=== PATIENT | female | born 1945 | race Caucasian/White ===

== ENCOUNTER 2019-03-05 11:54 | Emergency (ER) | payer OTHER, SELFPAY ==
[2019-03-05 12:00] VITALS: BP 151/80; PULSE 55; RESP 16; TEMP 36.3; O2SAT 98
[2019-03-05 12:25] LABS: Add Manual Diff / Slide Review NO; Basophils Absolute Auto 0 /uL (0-100); Basophils Percent Auto 0.3 % (0-2); Eosinophils Absolute Auto 0 /uL (0-450); Eosinophils Percent Auto 0.1 % (2-4); Hemoglobin 14.9 g/dL (12.0-16.0); Lymphocytes Absolute Auto 1400 /uL (1100-4500); Mean Corpuscular HGB Conc 33.9 % (30-36); Mean Corpuscular Hemoglobin 33.8 PG (26-34); Mean Corpuscular Volume 99.8 fL (80-100); Monocytes Absolute Auto 1400 /uL (0-900); Monocytes Percent Auto 9.3 % (3-14); Neutrophils Absolute Auto 12500 /uL (1500-7000); Neutrophils Percent Auto 81.3 % (50-75); Platelet Count 376 X10^3/uL (150-400); Red Blood Cell Count 4.41 X10^6/uL (4.0-5.2); Red Cell Distribution Width 12.7 % (11.6-14.8); White Blood Cell Count 15.4 X10^3/uL (4.5-11.0)
[2019-03-05 12:30] VITALS: BP 169/71; PULSE 50; RESP 16; O2SAT 95
[2019-03-05 12:30] LABS: INR 1.1 (0.9-1.3); Prothrombin Time 12.2 SECONDS (10.1-12.7)
[2019-03-05 12:33] LABS: PTT Partial Thromboplastin Tim 37 SECONDS (26.4-36.2)
[2019-03-05 12:37] LABS: Alanine Aminotransferase 11 IU/L (9-52); Albumin 4.4 g/dL (3.5-5.0); Albumin Globulin Ratio 1.2 (1.0-2.8); Alkaline Phosphatase 90 U/L (38-126); Aspartate Aminotransferase 31 IU/L (14-36); BUN Creatinine Ratio 23.3 (6-22); Bilirubin Total 0.6 mg/dL (0.2-1.3); Blood Urea Nitrogen 14 mg/dL (7-17); Calcium 9.5 mg/dL (8.4-10.2); Carbon Dioxide 24 mmol/L (22-32); Chloride 101 mmol/L (98-107); Estimated Glomerular Filt Rate > 60.0 mL/min (>60); Globulin 3.8 g/dL (1.7-4.1); Glucose 119 mg/dL (80-110); HEMOLYSIS 20 (0-50); Lipase 31 U/L (23-300); Potassium 4.1 mmol/L (3.4-5.1); Sodium 140 mmol/L (137-145); Total Protein 8.2 g/dL (6.3-8.2)
--- NOTE | 2019-03-05 12:42 | ED.ABDPAIN ---
HPI - Abdominal Pain <MARIMAR MooreP - Last Filed: 03/05/19 22:29> General Chief Complaint: Abdominal Pain Stated Complaint: vomiting/right side pain/chills x1 day Time Seen by Provider: 03/05/19 12:09 Source: patient Mode of arrival: Ambulatory Limitations: no limitations History of Present Illness HPI narrative: This is a 73-year-old female, smoker, who presents to ED after referred to from her PCP Christine Horton, with right upper quadrant and right upper flank pain that started yesterday evening at 5:30 a.m.. She reports she was so uncomfortable and was unable to sleep and rolled around in bed all night. She states she was nauseated and had vomited so far about 4 times. She states at one point her pain was radiating to shoulder blades. She also had chills and feeling hot overnight. She has no appetite at this time. She reports urinary frequency but denies dysuria or hematuria. The pain has subsided a bit this morning after she had taken ibuprofen 2 pills at home and describes as 4/10 and still has mild nausea. Patient denies history of abdominal surgery. Related Data Home Medications Medication Instructions Recorded Confirmed levothyroxine 100 mcg PO DAILY 03/05/19 03/05/19 metoprolol tartrate 25 mg PO DAILY 03/05/19 03/05/19 Allergies Allergy/AdvReac Type Severity Reaction Status Date / Time No Known Drug Allergies Allergy Verified 03/05/19 13:57 Review of Systems <MARIMAR MooreP - Last Filed: 03/05/19 22:29> Review of Systems Narrative: General: See HPI HEENT: Denies sinus pain, ear pain, sore throat, difficulty swallowing, dizziness. Respiratory: Denies dyspnea, cough, wheezing, hemoptysis, sputum. Cardiovascular: Denies chest pain, palpitations, orthopnea, edema. Gastrointestinal: See HPI : See HPI Musculoskeletal: Denies weakness, joint pain or bony pain. Skin: Denies rash, skin lesions, or other. Neurologic: Denies weakness, headache, numbness, change in speech, confusion, seizures, incoordination. Psychiatric: No concerning psychosocial issues. 12-point review of systems is negative except for those stated above. PFSH <RAYMOND Moore - Last Filed: 03/05/19 22:29> Medical History Hypertension (Acute) Hypothyroidism (Acute) Surgical History No pertinent past surgical history (Acute) Social History Smoking Status: Current every day smoker Social History Smoking Status: Current every day smoker Exam <RAYMOND Moore - Last Filed: 03/05/19 22:29> Narrative Exam Narrative: GEN: Alert, oriented x 3, well appearing and nourished, and in no acute distress. Head: Normal cephalic, atraumatic. No scalp or temporal tenderness, palpable mass or rash. EYES: Pupils are equal, round, and reactive to light and accommodation. Extraocular muscles are intact bilaterally. There is no subconjunctival hemorrhage, exudate and sclera non-icteric. ENT: Bilateral auditory canals and tympanic membranes clear. Hearing grossly intact. Nose without bleeding, purulent discharge or deviation. Facial sinuses nontender to palpate. Mucous membrane moist, no mucosal lesion. Throat without erythema, tonsillar hypertrophy or exudate. Uvula in midline, airway patent. Neck: Trachea in midline. No JVD, non-tender without lymphadenopathy. No masses or thyroid megaly. Supple, non-tender and no meningeal signs. CARDIAC: Normal regular rate and rhythm without murmurs, gallops, or rubs. No chest wall tenderness. No peripheral edema, cyanosis or pallor. Capillary refill is less than 2 seconds. RESPIRATORY: Lungs are cleat to auscultate bilaterally. No cough, wheezes, rales, or rhonchi. No stridor, respiratory distress, increase work of breathing, or accessary muscle used. ABD: Right upper quadrant pain with palpation. Abdomen soft and non-distended. No guarding or rebound tenderness to palpate. Bowel sounds are normal in all 4 quadrants. There is no palpable masses or organomegaly. EXT: Full painless ROM of all extremities with no loss of sensation, strength, effusion or edema. SKIN: Warm, dry, normal color for patient. No erythema, lesions or rash over visible areas. BACK: Nontender without deformity or crepitance. No flank tenderness. NEUROLOGICAL: Alert and oriented to place, time and person. Sensation and motor function intact bilaterally. No facial droops, dysphasia. PSYCHIATRIC: Good judgement and reason, without hallucinations, abnormal affect or abnormal behaviors during the examination. Initial Vital Signs Initial Vital Signs: Vital Signs Temperature 97.4 F L 03/05/19 12:00 Pulse Rate 55 L 03/05/19 12:00 Respiratory Rate 16 03/05/19 12:00 Blood Pressure 151/80 H 03/05/19 12:00 Pulse Oximetry 98 03/05/19 12:00 <Janae Ibarra DO - Last Filed: 03/06/19 08:31> Initial Vital Signs Initial Vital Signs: Vital Signs Temperature 97.4 F L 03/05/19 12:00 Pulse Rate 55 L 03/05/19 12:00 Respiratory Rate 16 03/05/19 12:00 Blood Pressure 151/80 H 03/05/19 12:00 Pulse Oximetry 98 03/05/19 12:00 Course <RAYMOND Moore - Last Filed: 03/05/19 22:29> Orders Ordered: Discontinued Medications Bacitracin (Bacitracin) 1 applic TOP NOW ONE Stop: 03/05/19 18:42 Last Admin: 03/05/19 18:56 Dose: 1 applic Documented by: MYNORONEAlmaz Sodium Chloride (Normal Saline 0.9%) 500 mls @ 1,000 mls/hr IV BOLUS PRN PRN Reason: Fluid replacement Last Infusion: 03/05/19 15:47 Dose: 1,000 mls/hr Documented by: Admin: 03/05/19 14:48 Dose: 1,000 mls/hr Documented by: BTONER Piperacillin/Tazobactam/Dextrose (Zosyn) 3.375 gm in 50 mls @ 100 mls/hr IV NOW ONE Stop: 03/05/19 15:49 Last Infusion: 03/05/19 16:47 Dose: 0 mls/hr Documented by: Admin: 03/05/19 16:12 Dose: 100 mls/hr Documented by: CRUZITO Ketorolac Tromethamine (Toradol) 30 mg IV NOW ONE Stop: 03/05/19 13:56 Last Admin: 03/05/19 14:48 Dose: 30 mg Documented by: CARIN Ondansetron HCl (Zofran) 4 mg IV NOW ONE Stop: 03/05/19 13:56 Last Admin: 03/05/19 14:48 Dose: 4 mg Documented by: MYNORONEAlmaz Tetanus/Diphtheria Toxoids (Td) 0.5 ml IM .ONCE ONE Stop: 03/05/19 18:23 Last Admin: 03/05/19 18:35 Dose: 0.5 ml Documented by: BTONEAlmaz Consultations Consultation #1: Dr. Philip for sugical consult and possible admission Time: 14:40 Consultation #2: Dr. Gibbons at [facility] Time: 17:09 Consultation #3: Dr. Rea at [facility] Time: 17:40 Vital Signs Vital signs: Vital Signs - 8 hr 03/05/19 14:30 03/05/19 15:00 03/05/19 18:41 Temperature 98.4 F Pulse Rate 53 L 55 L 62 Respiratory Rate 18 18 18 Blood Pressure [Left Arm] 134/69 Blood Pressure [Right Arm] 157/54 H 163/77 H Pulse Oximetry 97 100 <Janae Ibarra, DO - Last Filed: 03/06/19 08:31> Orders Ordered: Discontinued Medications Bacitracin (Bacitracin) 1 applic TOP NOW ONE Stop: 03/05/19 18:42 Last Admin: 03/05/19 18:56 Dose: 1 applic Documented by: CARIN Sodium Chloride (Normal Saline 0.9%) 500 mls @ 1,000 mls/hr IV BOLUS PRN PRN Reason: Fluid replacement Last Infusion: 03/05/19 15:47 Dose: 1,000 mls/hr Documented by: Admin: 03/05/19 14:48 Dose: 1,000 mls/hr Documented by: CARIN Piperacillin/Tazobactam/Dextrose (Zosyn) 3.375 gm in 50 mls @ 100 mls/hr IV NOW ONE Stop: 03/05/19 15:49 Last Infusion: 03/05/19 16:47 Dose: 0 mls/hr Documented by: BTONEAlmaz Admin: 03/05/19 16:12 Dose: 100 mls/hr Documented by: CRUZITO Ketorolac Tromethamine (Toradol) 30 mg IV NOW ONE Stop: 03/05/19 13:56 Last Admin: 03/05/19 14:48 Dose: 30 mg Documented by: BTONER Ondansetron HCl (Zofran) 4 mg IV NOW ONE Stop: 03/05/19 13:56 Last Admin: 03/05/19 14:48 Dose: 4 mg Documented by: BTONER Tetanus/Diphtheria Toxoids (Td) 0.5 ml IM .ONCE ONE Stop: 03/05/19 18:23 Last Admin: 03/05/19 18:35 Dose: 0.5 ml Documented by: BTONER Vital Signs Vital signs: Vital Signs - 8 hr 03/05/19 14:30 03/05/19 15:00 03/05/19 18:41 Temperature 98.4 F Pulse Rate 53 L 55 L 62 Respiratory Rate 18 18 18 Blood Pressure [Left Arm] 134/69 Blood Pressure [Right Arm] 157/54 H 163/77 H Pulse Oximetry 97 100 MDM - Abdominal Pain <RAYMOND Moore - Last Filed: 03/05/19 22:29> Differential Diagnosis Differential diagnosis: Likely other (Kidney stone, cholelithiasis, cholecystitis) Medical Records Attestation: I reviewed the patient's medical records. Lab Data Attestation: I reviewed the patient's lab results. Result diagrams: 03/05/19 12:10 03/05/19 12:10 Labs: Lab Results 03/05/19 03/05/19 03/05/19 Range/Units 12:10 12:10 12:10 WBC 15.4 H (4.5-11.0) X10^3/uL RBC 4.41 (4.0-5.2) X10^6/uL Hgb 14.9 (12.0-16.0) g/dL Hct 44.0 (36-46) % MCV 99.8 (80-100) fL MCH 33.8 (26-34) PG MCHC 33.9 (30-36) % RDW 12.7 (11.6-14.8) % Plt Count 376 (150-400) X10^3/uL Neut % (Auto) 81.3 H (50-75) % Lymph % (Auto) 9.0 L (25-40) % [place] % (Auto) 9.3 (3-14) % Eos % (Auto) 0.1 L (2-4) % Baso % (Auto) 0.3 (0-2) % Neut # (Auto) 13868 H (8721-6597) /uL Lymph # (Auto) 1400 (3981-3197) /uL [place] # (Auto) 1400 H (0-900) /uL Eos # (Auto) 0 (0-450) /uL Baso # (Auto) 0 (0-100) /uL PT 12.2 (10.1-12.7) SECONDS INR 1.1 (0.9-1.3) APTT 37 H (26.4-36.2) SECONDS Sodium 140 (137-145) mmol/L Potassium 4.1 (3.4-5.1) mmol/L Chloride 101 (98-107) mmol/L Carbon Dioxide 24 (22-32) mmol/L BUN 14 (7-17) mg/dL Creatinine 0.60 (0.52-1.04) mg/dL Estimated GFR > 60.0 (>60) mL/min BUN/Creatinine Ratio 23.3 H (6-22) Glucose 119 H (80-110) mg/dL Calcium 9.5 (8.4-10.2) mg/dL Total Bilirubin 0.6 (0.2-1.3) mg/dL AST 31 (14-36) IU/L ALT 11 (9-52) IU/L Alkaline Phosphatase 90 (38-126) U/L Total Protein 8.2 (6.3-8.2) g/dL Albumin 4.4 (3.5-5.0) g/dL Globulin 3.8 (1.7-4.1) g/dL Albumin/Globulin Ratio 1.2 (1.0-2.8) Lipase 31 (23-300) U/L Imaging Data US-complete Abd: Radiologist's impression: [address] [address] Ultrasound Report Signed Patient: Cari Coley [facility]#: [id number] : 1946Acct:[id number] Age/Sex: 73 / FDate of Service: 03/05/19 Loc: ED Accession Number: [id number] Procedure: US abdomen limited Ordering Provider: Edin HutchinsP PROCEDURE: US ABDOMEN LIMITED INDICATIONS: RIGHT UPPER QUADRANT AND RIGHT FLANK PAIN, NAUSEA AND VOMITI TECHNIQUE: Real-time focused scanning was performed of the abdomen, with image documentation. COMPARISON: None. FINDINGS: Liver unremarkable measures 16.9 cm in length. Gallbladder appears distended measuring 14.3 cm. There are numerous gallstones and sludge. Gallbladder wall appears thickened and measures 5 mm. No pericholecystic fluid however a positive sonographic Garg sign There is mild intrahepatic bile duct dilatation. There is dilatation of the common hepatic duct measuring 13 mm. Pancreas not well-seen secondary to shadowing bowel gas IMPRESSION: Cholelithiasis, and additional findings most concerning for acute cholecystitis. Dictated by: Ti Castellano M.D. on 03/05/2019 at 13:36 Approved by: Ti Castellano M.D. on 03/05/2019 at 13:38 MRCP-Abdomen: Radiologist's impression: [place] [address] Magnetic Resonance Report Signed Patient: Cari Coley [facility]#: [id number] : 1946Acct:[id number] Age/Sex: 73 / FDate of Service: 03/05/19 Loc: ED Accession Number: [id number] Procedure: MR abdomen wo con Ordering Provider: Edin Hutchins [facility] PROCEDURE: MR ABDOMEN WO CON INDICATIONS: cholecystitis, cholelithiasis TECHNIQUE: Coronal HASTE through the abdomen, axial 2-D FLASH in- and [id number], and breath-hold T2 FSE with fat saturation through the biliary system and pancreas. Oblique coronal and axial thin-slice HASTE, radial thick-slab HASTE centered on the extrahepatic bile ducts. Intravenous secretin: Not requested. COMPARISON: [facility], US ABDOMEN LIMITED, 03/05/2019, 13:08. FINDINGS: Image quality: Excellent. Pancreas and biliary system: There is a probable small stone impacted in the distal common duct. The common duct is dilated. The intrahepatic ducts are not dilated. Pancreas is normal in morphology, without adjacent soft tissue edema. Pancreatic duct is normal in caliber, without developmental anomalies. Gallbladder is distended and contains numerous stones. There is gallbladder wall edema.. Other solid organs: Liver is normal in size. Spleen is normal in size. No adrenal nodules. Both kidneys are normal in size, without hydronephrosis. Nodes and vessels: No retroperitoneal or mesenteric adenopathy by size criteria. Aorta and inferior vena cava are normal in size. Bowel and peritoneum: Unenhanced bowel loops are normal in caliber. Minimal perihepatic fluid. Lung bases: No basal pleural effusions. Heart size is normal. Bones and soft tissues: No ventral hernias. Bone marrow is of normal overall signal. IMPRESSION: 1. Probable impacted stone in the distal common duct resulting in extrahepatic biliary ductal dilatation. 2. Numerous gallstones, distended gallbladder, gallbladder wall edema. Findings are suspicious for acute cholecystitis. 3. Minimal perihepatic ascites. Dictated by: Jason Leonardo M.D. on 03/05/2019 at 16:34 Approved by: Jason Leonardo M.D. on 03/05/2019 at 16:39 ECG Data Attestation: I personally reviewed and interpreted this ECG as follows: Prior ECG tracings: not available for review Interpretation: Supraventricular bradycardia rate at 53. Normal [place] No ST elevation or depression. MDM Narrative Medical decision making narrative: This is, smoker, who presents to ED with right upper quadrant pain radiating to right upper flank and shoulder blades with nausea vomiting since 5:30 p.m. yesterday. Patient states she was up all night ruling in bed due to pain which has improved a bit today. She also states urinary frequency without dysuria or back pain. She was initially seen at Christine Horton, PCP BROTHEL KEEPER, office and was referred to ER for further evaluation. Patient has no previous abdominal surgical history. Patient had taken 2 tabs of [id number] ibuprofen this morning which helped with the pain a bit. She had subjective fever and chills. Lab tests shows elevated leukocytosis of 15.4 with a shift left of neutrophils 80.3. Lipase was total bilirubin was 0.6. Otherwise her coag and other chemistries were unremarkable. Her urine showed nitrites, blood, leuks with his age appearance without bilirubin at her PCPs office. This has been being cultured at this time. Ultrasound test on abdomen showed distended gallbladder with multiple stones and sludge. There were mild intrahepatic bile duct and bile duct dilatation. Patient's case was discussed with Dr. Philip, General surgeon and further imaging test MRCP was ordered. MRCP showed probable impacted stone in the distal common bile duct resulting in extrahepatic biliary ductal dilatation and minimal perihepatic ascites. Dr. Gibbons at [facility] was contacted for possible transfer and was advised to consult [facility] for surgical capacity for ERCP. Dr. Rea at [facility] kindly accepted the patient for surgical ERCP intervention and direct admit was done. The findings were discussed with the patient. Patient verbalized the understanding and agrees with treatment plan and transfer to higher level of care. All required documents were completed. Ultrasound and MRCP images were transmitted to [facility]. Patient was treated with normal saline IV fluid with 1 L, Toradol, Zofran, and Zosyn 3.375 Gm for cholecystitis and possible UTI. The patient was treated for right elbow skin tear after sustained a fall rule out of bed. Patient was able to move affected arm with active full range of motion with neurovascular exam was intact. Td immunization was updated. Patient declined x-ray test done elbow, shoulder or hand. <Janae Ibarra, DO - Last Filed: 03/06/19 08:31> Lab Data Labs: Lab Results 03/05/19 03/05/19 03/05/19 Range/Units 12:10 12:10 12:10 WBC 15.4 H (4.5-11.0) X10^3/uL RBC 4.41 (4.0-5.2) X10^6/uL Hgb 14.9 (12.0-16.0) g/dL Hct 44.0 (36-46) % MCV 99.8 (80-100) fL MCH 33.8 (26-34) PG MCHC 33.9 (30-36) % RDW 12.7 (11.6-14.8) % Plt Count 376 (150-400) X10^3/uL Neut % (Auto) 81.3 H (50-75) % Lymph % (Auto) 9.0 L (25-40) % [place] % (Auto) 9.3 (3-14) % Eos % (Auto) 0.1 L (2-4) % Baso % (Auto) 0.3 (0-2) % Neut # (Auto) 85559 H (1336-9302) /uL Lymph # (Auto) 1400 (6468-7937) /uL [place] # (Auto) 1400 H (0-900) /uL Eos # (Auto) 0 (0-450) /uL Baso # (Auto) 0 (0-100) /uL PT 12.2 (10.1-12.7) SECONDS INR 1.1 (0.9-1.3) APTT 37 H (26.4-36.2) SECONDS Sodium 140 (137-145) mmol/L Potassium 4.1 (3.4-5.1) mmol/L Chloride 101 (98-107) mmol/L Carbon Dioxide 24 (22-32) mmol/L BUN 14 (7-17) mg/dL Creatinine 0.60 (0.52-1.04) mg/dL Estimated GFR > 60.0 (>60) mL/min BUN/Creatinine Ratio 23.3 H (6-22) Glucose 119 H (80-110) mg/dL Calcium 9.5 (8.4-10.2) mg/dL Total Bilirubin 0.6 (0.2-1.3) mg/dL AST 31 (14-36) IU/L ALT 11 (9-52) IU/L Alkaline Phosphatase 90 (38-126) U/L Total Protein 8.2 (6.3-8.2) g/dL Albumin 4.4 (3.5-5.0) g/dL Globulin 3.8 (1.7-4.1) g/dL Albumin/Globulin Ratio 1.2 (1.0-2.8) Lipase 31 (23-300) U/L ECG Data Attestation: I personally reviewed and interpreted this ECG as follows: Prior ECG tracings: not available for review Interpretation: Just sternal rhythm rate 53 T-wave inversion noted in lead 3 Discharge Plan Departure Patient Disposition: [facility] Clinical Impression: Cholelithiasis and acute cholecystitis with obstruction Discharge Date/Time: 03/05/19 19:31 Prescriptions: No Action levothyroxine 100 mcg tablet 100 mcg PO DAILY RF: 0 metoprolol tartrate 25 mg tablet 25 mg PO DAILY RF: 0 Referrals: Christine Horton ARNP [Primary Care Provider] -
--- NOTE | 2019-03-05 12:44 | PC.NURSE ---
Patient's urine test was faxed over from the clinic, positive for nitrates, leukocytes, and blood. It was a clean catch. Results given to Eusebia ANDRADE.
[2019-03-05 14:17] VITALS: BP 154/54; PULSE 51; RESP 18; O2SAT 97
[2019-03-05 14:30] VITALS: BP 157/54; PULSE 53; RESP 18
[2019-03-05] MEDS: SODIUM CHLORIDE 0.9% 500 ML 1000 ML IV (14:48)
[2019-03-05] MEDS: ONDANSETRON 4 MG/2 ML INJ IV (14:48)
[2019-03-05] MEDS: KETOROLAC 60 MG/2 ML VIAL 30 MG IV (14:48)
[2019-03-05 15:00] VITALS: BP 163/77; PULSE 55; RESP 18; O2SAT 97
--- NOTE | 2019-03-05 15:21 | DI.MRI.S_ITS ---
PROCEDURE: MR ABDOMEN WO CON INDICATIONS: cholecystitis, cholelithiasis TECHNIQUE: Coronal HASTE through the abdomen, axial 2-D FLASH in- and [id number], and breath-hold T2 FSE with fat saturation through the biliary system and pancreas. Oblique coronal and axial thin-slice HASTE, radial thick-slab HASTE centered on the extrahepatic bile ducts. Intravenous secretin: Not requested. COMPARISON: [facility], , ABDOMEN LIMITED, 03/05/2019, 13:08. FINDINGS: Image quality: Excellent. Pancreas and biliary system: There is a probable small stone impacted in the distal common duct. The common duct is dilated. The intrahepatic ducts are not dilated. Pancreas is normal in morphology, without adjacent soft tissue edema. Pancreatic duct is normal in caliber, without developmental anomalies. Gallbladder is distended and contains numerous stones. There is gallbladder wall edema.. Other solid organs: Liver is normal in size. Spleen is normal in size. No adrenal nodules. Both kidneys are normal in size, without hydronephrosis. Nodes and vessels: No retroperitoneal or mesenteric adenopathy by size criteria. Aorta and inferior vena cava are normal in size. Bowel and peritoneum: Unenhanced bowel loops are normal in caliber. Minimal perihepatic fluid. Lung bases: No basal pleural effusions. Heart size is normal. Bones and soft tissues: No ventral hernias. Bone marrow is of normal overall signal. IMPRESSION: 1. Probable impacted stone in the distal common duct resulting in extrahepatic biliary ductal dilatation. 2. Numerous gallstones, distended gallbladder, gallbladder wall edema. Findings are suspicious for acute cholecystitis. 3. Minimal perihepatic ascites. Dictated by: Jason Leonardo M.D. on 03/05/2019 at 16:34 Approved by: Jason Leonardo M.D. on 03/05/2019 at 16:39
[2019-03-05] MEDS: PIPERACILLIN-TAZO 3.375 GM/50 ML FROZ.PIGGY IV (16:12)
--- NOTE | 2019-03-05 16:17 | P.CONS_ITS ---
History of Present Illness Consult details Date Patient Seen: 03/05/19 Time Patient Seen: 16:17 Chief complaint: vomiting/right side pain/chills x1 day Reason for consult: RUQ pain, gall stones, elevated WBC, dilated bile ducts Requesting provider: Edin Hutchins Narrative: This is a 73-year-old woman with history of hypertension, and hypothyroidism. Yesterday evening she started having epigastric and right upper quadrant pain after eating pasta with cheese for dinner. She presented to the ER, where she was found to have gall stones, thickened gall bladder, and dilated bile ducts on RUQ US. She had a WBC of 15.4, and normal LFT's and lipase. She denies jaundice, fevers, constipation. She does have some nausea, and has had diarrhea. She had a similar episode of epigastric pain a couple of weeks ago, which she thought was the flu. [facility] Medical History Hypertension (Acute) Hypothyroidism (Acute) Surgical History No pertinent past surgical history (Acute) Social History Smoking Status: Current every day smoker Social History Smoking Status: Current every day smoker Meds Home Medications and Allergies Home Medications Medication Instructions Recorded Confirmed Type levothyroxine 100 mcg PO DAILY 03/05/19 03/05/19 History metoprolol tartrate 25 mg PO DAILY 03/05/19 03/05/19 History Allergies Allergy/AdvReac Type Severity Reaction Status Date / Time No Known Drug Allergies Allergy Verified 03/05/19 13:57 Review of Systems Review of Systems Narrative: All systems reviewed and unremarkable except as noted in HPI and below Exam Vital Signs (past 8 hours): - 03/05/19 12:00 03/05/19 12:30 03/05/19 14:17 Temperature 97.4 F L Pulse Rate 55 L 50 L 51 L Respiratory Rate 16 16 18 Blood Pressure 151/80 H Blood Pressure [Left Arm] 154/54 H Blood Pressure [Right Arm] 169/71 H Pulse Oximetry 98 95 97 03/05/19 14:30 10/04/19 15:00 Temperature Pulse Rate 53 L 55 L Respiratory Rate 18 18 Blood Pressure Blood Pressure [Left Arm] Blood Pressure [Right Arm] 157/54 H 163/77 H Pulse Oximetry 97 Oxygen Delivery Method Room Air Narrative Exam Narrative: GENERAL: Well groomed and cooperative. Appears stated age. Answers questions promptly and appropriately. Vital signs noted. HENT: Normocephalic, atraumatic. Hearing intact. Oral mucosa is pink and moist. EYES: Conjunctiva pink, sclera white, no periorbital swelling. CARDIOVASCULAR: Regular rate. No pedal edema. RESPIRATORY: Normal respiratory rate, breathing comfortably on room air. GASTROINTESTINAL: Abdomen soft and non-distended; mild right upper quadrant and epigastric tenderness to palpation MUSCULOSKELETAL: Normal gait and coordination. Equal tone and mass bilaterally. SKIN: Warm, dry, soft, appropriate color for ethnicity. No jaundice. No other lesions, rashes, or wounds. NEURO: Alert and Oriented X 3. Good coordination. No ataxia, or sensory deficits, or cognitive issues. PSYCH: Appropriate affect and mood. Objective ECG Impression: Right upper quadrant ultrasound: Thickened gallbladder, gallstones, dilated bile ducts MRCP: Pending Labs Result Diagrams: 03/05/19 12:10 03/05/19 12:10 Labs: Laboratory Results - last 24 hr 03/05/19 03/05/19 03/05/19 12:10 12:10 12:10 WBC 15.4 H RBC 4.41 Hgb 14.9 Hct 44.0 MCV 99.8 MCH 33.8 MCHC 33.9 RDW 12.7 Plt Count 376 Neut % (Auto) 81.3 H Lymph % (Auto) 9.0 L [place] % (Auto) 9.3 Eos % (Auto) 0.1 L Baso % (Auto) 0.3 Neut # (Auto) 28226 H Lymph # (Auto) 1400 [place] # (Auto) 1400 H Eos # (Auto) 0 Baso # (Auto) 0 PT 12.2 INR 1.1 APTT 37 H Sodium 140 Potassium 4.1 Chloride 101 Carbon Dioxide 24 BUN 14 Creatinine 0.60 Estimated GFR > 60.0 BUN/Creatinine Ratio 23.3 H Glucose 119 H Calcium 9.5 Total Bilirubin 0.6 AST 31 ALT 11 Alkaline Phosphatase 90 Total Protein 8.2 Albumin 4.4 Globulin 3.8 Albumin/Globulin Ratio 1.2 Lipase 31 Assessment & Plan Assessment and plan (1) Leukocytosis: Current visit: Yes Status: Acute (2) Gallstone: Current visit: Yes Status: Acute (3) Acute cholecystitis: Current visit: Yes Status: Acute (4) Common bile duct dilatation: Current visit: Yes Status: Acute (5) Dilated intrahepatic bile duct: Current visit: Yes Status: Acute (6) Urinary tract infection: Current visit: Yes Status: Acute Assessment & Plan narrative: This 73-year-old woman with a presentation consistent with acute cholecystitis on top of symptomatic cholelithiasis. However she has dilated bile ducts, which are concerning for possible choledocholithiasis or another obstructive process. Her transaminases and bilirubin are normal, which would indicate that she at least does not have a complete obstruction of her common bile duct. She also has indicators of a urinary tract infection. Recommendations: Urgent MRCP to determine whether not there is a common bile duct process which would indicate transfer to another hospital for either ERCP or other management Following MRCP, if no destructive process is seen within the common bile duct, I will plan on admitting her, hydrating her with IV fluids, and scheduling her for urgent cholecystectomy tomorrow Is admitted, we will start her on antibiotics for cholecystitis and UTI Time Spent With Patient Time with patient: Greater than 35 minutes
[2019-03-05] MEDS: TETANUS DIPHTHERIA TOXOIDS 0.5 ML VIAL IM (18:35)
[2019-03-05 18:41] VITALS: BP 134/69; PULSE 62; RESP 18; TEMP 36.9; O2SAT 100
[2019-03-05] MEDS: BACITRACIN OINT 0.9 GM PCKT 1 APPLIC TOP (18:56)
--- NOTE | 2019-03-05 19:59 | PC.NURSE ---
Bassem Whitmore called back from [facility]. gave report. pt had new wound, skin tear from her fall, about the size of a quarter, provided bacitracin and allevyn gentle border dressing to rt elbow.
== END 2019-03-05 19:31 | disposition short-term general hospital (02) ==
PROVIDERS: Emergency Medicine; Emergency Provider Nurse Practitioner Family; PCP Nurse Practitioner Family
DX: K80.01 Calculus of gallbladder with acute cholecystitis with obstruction (principal)
CPT/HCPCS: 36415; 74181; 76705; 80053; 83690; 85025; 85610; 85730; 90471; 90714; 93005; 96361; 96365; 96375; 99283; 99285; J1885; J2405; J2543